=== PATIENT | female | born 2000 ===

== ENCOUNTER 2022-05-25 21:27 | Observation (INO) | payer BC ==
[2022-05-25] MEDS ORDERED: diphenhydrAMINE 50 MG/ML SDV IVPUSH ONE (21:45)
[2022-05-25] MEDS ORDERED: Dexamethasone 10 MG/ML SDV IVPUSH ONE (21:45)
[2022-05-25] MEDS ORDERED: cefTRIAXone 1 GM in Sodium Chloride 0.9% 50 ML IV ONE (21:45)
[2022-05-25] MEDS ORDERED: Famotidine 20 MG/2 ML SDV IVPUSH ONE (21:45)
[2022-05-25 23:08] LABS: CARBON DIOXIDE,CO2 21.8 mmol/L (21.0-32.0); POTASSIUM,K 3.4 mmol/L (3.5-5.1)
[2022-05-26] MEDS ORDERED: Ondansetron 4 MG/2 ML SDV IVPUSH PRN (01:52)
[2022-05-26] MEDS ORDERED: Albuterol/Ipratropium 3.0-0.5 MG/3 ML Neb Soln NEB PRN (01:59)
[2022-05-26] MEDS: Lactated Ringers 1,000 ML IV SCH ×2 (02:49→12:42)
[2022-05-26] MEDS ORDERED: diphenhydrAMINE 25 MG Cap PO ONE (04:28)
[2022-05-26 06:32] LABS: POTASSIUM,K 3.8 mmol/L (3.5-5.1)
[2022-05-26] MEDS: Heparin Sodium 5,000 Units/ML Vial SUBCUT SCH ×2 (08:25→16:59)
[2022-05-26] MEDS: Pantoprazole 40 MG in Sodium Chloride 0.9% 10 ML IVPUSH SCH (08:25)
[2022-05-26] MEDS ORDERED: Dexamethasone 4 MG/ML SDV IVPUSH SCH (09:00)
[2022-05-26] MEDS: diphenhydrAMINE 25 MG Cap PO PRN ×2 (12:41→21:26)
[2022-05-26] MEDS: Meropenem Premix 1 GM in Premix Bag 1 BAG IV SCH (21:34)
[2022-05-26] MEDS ORDERED: Levofloxacin 750 MG Tab PO SCH (22:00)
[2022-05-26] MEDS ORDERED: Meropenem Premix 1 GM in Premix Bag 1 BAG IV ONE (22:00)
[2022-05-27] MEDS ORDERED: Meropenem Premix 1 GM in Premix Bag 1 BAG IV ONE (05:20)
[2022-05-27] MEDS: Meropenem Premix 1 GM in Premix Bag 1 BAG IV SCH (05:20)
[2022-05-27] MEDS: Pantoprazole 40 MG in Sodium Chloride 0.9% 10 ML IVPUSH SCH (08:23)
[2022-05-27] MEDS ORDERED: Levofloxacin 750 MG Tab PO SCH ×2 (11:00→13:00)
[2022-05-27] MEDS ORDERED: Meropenem Premix 1 GM in Premix Bag 1 BAG IV SCH (14:00)
[2022-05-27 14:06] VITALS: BP 113/70; PULSE 72
== END 2022-05-27 13:45 | disposition home or self-care (01) ==
LOC: MW.ED 21:27 → MW.MS 05-26 00:19
PROVIDERS: ADMIT Student in an Organized Health Care Education/Training Program; ATTEND Student in an Organized Health Care Education/Training Program
DX: D70.2 Other drug-induced agranulocytosis (principal); T36.8X5A Adverse effect of other systemic antibiotics, initial encounter; L02.212 Cutaneous abscess of back [any part, except buttock and flank]; F41.9 Anxiety disorder, unspecified; F32.A Depression, unspecified; Z88.2 Allergy status to sulfonamides; Z98.890 Other specified postprocedural states; Z79.899 Other long term (current) drug therapy; Z20.822 Contact with and (suspected) exposure to COVID-19
CPT/HCPCS: 36415; 80053; 81001; 84703; 85025; 87040; 87389; 87635; 96367; 96372; 96375; 96376; A9270; C9113; G0378; J0696; J1100; J1200; J1644; J2185; J3490; J7120; 87077; 87186; 96365; 99284; 99284-25; U0002